=== PATIENT | male | born 1995 | race Caucasian/White ===

== ENCOUNTER 2021-06-07 00:45 | Emergency (ER) | payer OTHER ==
[~2021-06-07] VITALS: Ht 193 cm; Wt 104.0 kg
[2021-06-07] MEDS ORDERED: normal saline 1000ml 1,000 ML IV ONE (01:55)
[2021-06-07] MEDS ORDERED: acetaminophen 325mg tablet PO ONE (01:55)
[2021-06-07 02:27] VITALS: BP 136/83
[2021-06-07 02:55] LABS: ALBUMIN 3.8 G/DL (3.4-5.0); ANION GAP 13 (8-16); BLOOD UREA NITROGEN 13 MG/DL (7-18); BUN/CREATININE RATIO 11.4 (5.4-32.0); CALCIUM 8.3 MG/DL (8.5-10.1); CHLORIDE 107 MMOL/L (99-107); CREATININE 1.14 MG/DL (0.60-1.10); GLUCOSE 91 MG/DL (70-104); POTASSIUM 3.2 MMOL/L (3.5-5.1); SODIUM 142 MMOL/L (135-145); TOTAL CARBON DIOXIDE 21.8 MMOL/L (24-32); eGFR 78 ML/MIN
[2021-06-07 02:58] LABS: BASOPHILS % (AUTO) 0.2 % (0-1); EOSINOPHILS % (AUTO) 0.2 % (0-6); HEMATOCRIT 43.2 % (42.0-52.0); LYMPHOCYTES # (AUTO) 0.9 X10'3 (1.1-4.8); LYMPHOCYTES % (AUTO) 7.2 % (21-51); MEAN CORPUSCULAR HEMOGLOBIN 30.3 PG (27.0-31.0); MEAN CORPUSCULAR HGB CONC 34.6 g/dL (33.0-36.5); MEAN CORPUSCULAR VOLUME 87.7 FL (78-98); MEAN PLATELET VOLUME 8.1 FL (7.4-10.4); MONOCYTES # (AUTO) 0.7 X10'3 (0-0.9); MONOCYTES % (AUTO) 5.4 % (2-12); NEUTROPHILS # (AUTO) 10.8 X10'3 (1.8-7.7); PLATELET COUNT 259 X10'3 (140-440); RED BLOOD COUNT 4.93 X10'6 (4.70-6.10); RED CELL DISTRIBUTION WIDTH 13.3 % (11.5-14.5); WHITE BLOOD COUNT 12.4 X10'3 (4.5-11.0)
[2021-06-07] MEDS ORDERED: potassium Cl 20 mEq SR tablet PO STA (03:08)
== END 2021-06-07 03:36 | disposition home or self-care (01) ==
LOC: ER 00:46
DX: R50.9 Fever, unspecified (principal); E87.6 Hypokalemia; M54.5 Low back pain; R51.9 Headache, unspecified; R11.0 Nausea
CPT/HCPCS: 36415; 80048; 85025; 96360; 99283; J7030